=== PATIENT | male | born 1975 | race Two or more races ===

== ENCOUNTER 2018-08-04 17:22 | Emergency (ER) | payer SELFPAY ==
[~2018-08-04] VITALS: Ht 162.6 cm; Wt 72.6 kg
[2018-08-04] MEDS ORDERED: Meclizine 25mg tab ORAL ONE (18:15)
[2018-08-04] MEDS ORDERED: MECLIZINE HCL25 MG ORAL (18:21)
[2018-08-04 18:45] VITALS: BP 126/83
[2018-08-04 18:46] VITALS: BP 123/80
[2018-08-04 18:51] VITALS: BP 121/90
[2018-08-04 18:57] VITALS: BP 121/90
--- NOTE | 2018-08-04 19:05 | Emergency Room Report ---
History of Present Illness General Chief Complaint: Dizziness Source: Patient Present Illness HPI Patient's a 43-year-old male who presented after increased dizziness. Patient gradual onset of symptoms. Patient reports having intermittent symptoms which are worsened with head movements. He denies any fever. He denies any pain or hearing loss. He denies recent trauma. He denies any presyncopal sensation. He denies vomiting or weakness to his extremities. The patient had intermittent episodes and has had episodes in the past. He states he does not drink alcohol regularly. Allergies: Coded Allergies: No Known Allergies (Unverified , 08/04/18) Patient History Past Medical History: see triage record Reviewed Nursing Documentation: PMH: Agreed; PSxH: Agreed Nursing Documentation-PMH Past Medical History: No Stated History Review of Systems All Other Systems: negative except mentioned in HPI Physical Exam Vital Signs Date Time Temp Pulse Resp B/P (MAP) Pulse Ox O2 Delivery O2 Flow Rate FiO2 08/04/18 17:30 98.1 67 18 126/83 96 Room Air General Appearance: well appearing, no apparent distress, alert, GCS 15 Head: normocephalic, atraumatic ENT: hearing grossly normal, normal voice Neck: full range of motion, supple Respiratory: no respiratory distress, speaking full sentences Cardiovascular #1: normal inspection Gastrointestinal: normal inspection Musculoskeletal: no calf tenderness Neurologic: normal gait Psychiatric: mood/affect normal Skin: no rash Medical Decision Making Diagnostic Impression: Primary Impression: Vertigo ER Course Patient presented for dizziness. Differential diagnosis included was not limited to CVA, vertebrobasilar insufficiency, myocardial infarction, benign positional vertigo, labyrinthitis, aspirin overdose among others. The patient has exam consistent with peripheral vertigo likely do to benign positional vertigo. Patient was given oral meclizine. Patient had improvement in symptoms.The patient is advised to follow up with primary care doctor in 1-2 days. Patient is advised to return if any worsening condition or if any changes in status that are concerning. This report is dictated with [employer] r[employer] baby software which may occasionally lead to discrepancies related to use of this software. EKG Diagnostic Results Rate: normal Rhythm: NSR ST Segments: no acute changes Last Vital Signs Date Time Temp Pulse Resp B/P (MAP) Pulse Ox O2 Delivery O2 Flow Rate FiO2 08/04/18 18:57 98.1 65 18 121/90 96 Room Air Status: improved Disposition: HOME, SELF-CARE Condition: Stable Scripts Meclizine Hcl* (MECLIZINE*) 25 Mg Tablet 25 MG ORAL THREE TIMES A DAY, #20 TAB Prov: Francis Chavarria MD 08/04/18 Patient Instructions: Vertigo Francis Chavarria MD Aug 04, 2018 19:05
== END 2018-08-04 18:55 | disposition home or self-care (01) ==
LOC: EMR 18:13
DX: R42 Dizziness and giddiness (principal)
CPT/HCPCS: 93005; 99282